=== PATIENT | male | born 1960 | race Caucasian/White ===

== ENCOUNTER 2017-11-12 20:17 | Emergency (ER) | payer OTHER ==
--- NOTE | 2017-11-12 20:25 | ED Physician Documentation ---
General Adult - HISTORIAN Historian: patient - HPI Stated Complaint: forehead/scalp laceration Chief Complaint: General Adult Onset: hours Timing: still present Severity: mild Further Comments: yes (Pt is a 56 yo male with a laceration high on his forhead near the hairline. Pt was using a gallo that struck him in the head. Pt did not sustain LOC. No neck pain. Tetanus is utd.) - ROS CONST: no problems EYES/ENT: none CVS/RESP: none GI/: none MS/SKIN/LYMPH: other (forehead/scalp laceration) - PAST HX Past History: hypertension, other (depression, gout) Allergies/Adverse Reactions: Allergies Allergy/AdvReac Type Severity Reaction Status Date / Time No Known Allergies Allergy Unverified 11/12/17 20:39 Home Medications: Ambulatory Orders Medication Instructions Recorded Allopurinol [Zyloprim] 300 mg PO DAILY u2 08/06/12 Diclofenac Sodium [Voltaren] 75 mg PO BID 11/12/17 Furosemide [Furosemide] 20 mg PO DAILY 11/12/17 Temazepam [Temazepam] 30 mg PO HS 11/12/17 - SOCIAL HX Smoking History: non-smoker - FAMILY HX Family History: No - VITAL SIGNS Vital Signs: Vital Signs Temp Pulse Resp BP Pulse Ox 133/82 08/12/15 11:40 - REVIEWED ASSESSMENTS Nursing Assessment Reviewed: Yes Vitals Reviewed: Yes Procedures Wound Location: head (forehead) Wound Length: 4 cm Wound's Depth, Shape: superficial Wound Explored: clean Irrigated w/ Saline (ccs): 15 Betadine Prep?: No (Hybiclens) Anesthesia: Lidocaine w/ Epi Wound Debrided: minimal Wound Repaired With: sutures Suture Size/Type: 4:0, nylon Number of Sutures: 7 Layer Closure?: No Progress - Progress Progress: Triple abx in ER. Apply topical antibiotic to sutured area twice daily for 5 days. Follow up with primary provider in 5 to 7 days for suture removal. (7 sutures) Use sunblock on sutured site for up to a year to reduce scarring General Adult Physical Exam - PHYSICAL EXAM GENERAL APPEARANCE: no distress EENT: eye inspection normal NECK: normal inspection, supple RESPIRATORY: no resp distress, chest non-tender, breath sounds normal CVS: reg rate & rhythm, heart sounds normal BACK: normal inspection, no CVA tenderness SKIN: other (4 cm superficial laceration, central forehead at the hairline) EXTREMITIES: non-tender, normal range of motion, no evidence of injury NEURO: oriented X3, CN's nml as tested, motor nml, sensation nml, mood/affect nml, cognition normal Discharge Clincal Impression: scalp/forehead laceration Referrals: Trina Mojica PRN [Primary Care Provider] - Condition: Good Disposition: 01 HOME, SELF-CARE Decision to Admit: NO Decision Time: 20:59
[2017-11-12 21:07] VITALS: BP 112/78
[2017-11-12] MEDS: LIDOCAINE 1%/EPINEPHRINE 20ML VIAL IJ ONE ×2 (21:07→21:34)
== END 2017-11-12 21:06 | disposition home or self-care (01) ==
LOC: ED 20:17
DX: S01.81XA Laceration without foreign body of other part of head, initial encounter (principal); W31.89XA Contact with other specified machinery, initial encounter; Y93.89 Activity, other specified; Y92.9 Unspecified place or not applicable; Y99.9 Unspecified external cause status
CPT/HCPCS: 12002